=== PATIENT | male | born 1960 | race Caucasian/White ===

== ENCOUNTER → 2016-10-24 | Day surgery (SDC) | payer BC ==
[~2016-10-24] MED LIST: BUPIVACAINE/EPINEPHRINE 0.5% PF 30 ML VIAL ONE; CEPH500C3 PO; KETOROLAC TROMETHAMINE 30 MG/ML (IVP) VIAL IV PUSH ONE; LACTATED RINGER'S 1000 ML INJ 1,000 ML ONE; LORT5TAB PO; MIDAZOLAM HCL 2 MG/2 ML VIAL ONE; ONDANSETRON HCL 4 MG/2 ML VIAL IV PUSH ONE; PROPOFOL 200 MG/20 ML AMP IV ONE; TRIAMCINOLONE ACETONIDE 40 MG/ML VIAL ONE; Z.0.NO CURRENT MEDS; ceFAZolin 2 GM PREMIX 50 ML ONE
--- NOTE | 2016-10-24 09:57 | MP ---
cc: TAHIR BINGHAM M.D. DATE OF SURGERY: 10/24/2016 PREOPERATIVE DIAGNOSIS Left knee medial and lateral meniscus tear and bipartite medial patella. POSTOPERATIVE DIAGNOSIS Left knee medial and lateral meniscus tear and bipartite medial patella. PROCEDURE 1. Left knee arthroscopic partial medial and partial lateral meniscectomy. 2. Left knee partial patellectomy of 3 x 1 cm of bone from the medial side of the patella. ANESTHESIA General. SURGEON Tahir Bingham MD TAPE SEWER SURGEON LEESA Hyman ESTIMATED BLOOD LOSS Estimated blood loss was minimum. SPECIMEN Bone fragments discarded. COMPLICATIONS None known. INDICATION Kiana Oreilly is a 56-year-old male with persistent left knee pain symptomatology with multiple findings on plain x-rays and MRI scan. On the plain x-ray he has a large bone fragment on the medial aspect of his patella which measures 3 x 1 cm. 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 There is also unstable posterior horn medial meniscus tear and tear involving the lateral meniscus. He now presents for arthroscopic surgery. Risks, benefits were thoroughly discussed. Also in his diagnosis is the diagnosis for crystalline arthropathy. The surveyor instrument assistant is an advanced registered nurse practitioner. His skill set was medically necessary for the performance of the operation. He helped hold the arthroscope, positioned the limb, helped with instrumentation to allow the undersigned to use two hands. His skill set was medically necessary for the performance of the operation. PROCEDURE The patient was brought to the operating room and he was placed under general anesthetic. Both lower extremities were draped and prepped in the usual sterile fashion. IV antibiotics were given. Time-out was completed. Inferolateral Marcaine was injected and the portal made. Blunt trocar was used to introduce the cannula and the first photograph shows some chondromalacia essentially within the patella, fairly mild, trochlear groove looked good. There was some subtle calcifications seen throughout the synovium. The medial compartment showed some chondromalacia weightbearing portion of medial femoral condyle and unstable tear involving the junction of the mid body in the posterior horn with involvement of the inner 40% of posterior horn of medial meniscus. The lateral compartment showed calcified radial tear at the midbody of the lateral meniscus in the inner 25% edge of the meniscus. We proceeded with arthroscopic partial medial meniscectomy using combination of basket forceps and arthroscopic shaver with a gentle chondroplasty performed on the medial femoral condyle. We then moved into the lateral compartment and addressed the lateral meniscus in a similar way. We then redirected our medial portal so we had direct access to the unstable medial bipartite patella and we visualized from inferiorly looking medial and superior and then redirected our portals coming directly onto this bone fragment and photographed from this angle, then we used electrocautery about the bone fragment. We noted the fragment to be loose. We then used the bur to proceed to sequentially remove this bone fragment and take this down to the medial side of patella and the patella itself was burred down so there was no bony overgrowth in this area and then meticulous hemostasis was obtained with the use of electrocautery. Follow-up photograph taken here. Repeat diagnostic arthroscopy confirmed no loose bodies. Arthroscopic equipment was removed. Marcaine was injected about the portals and now we injected also 1 cc of Kenalog (40 mg) nylon used to close the portals. Sterile dressing was applied. Ramakrishna wrap was applied. The patient was awoken and returned to the recovery room in stable condition. MD DAYANARA Weiss/MIRACLE /9:01 AM /9:36 AM
== END | disposition home or self-care (01) ==
LOC: ESDC 07:10
PROVIDERS: ATTEND Orthopaedic Surgery Sports Medicine
DX: S83.242A Other tear of medial meniscus, current injury, left knee, initial encounter (principal); S83.282A Other tear of lateral meniscus, current injury, left knee, initial encounter
CPT/HCPCS: 01400; 29880; J0690; J1885; J2250; J2405; J3010; J3301; J7120